=== PATIENT | male | born 1960 | race Hispanic/Latino ===

== ENCOUNTER 2017-04-26 08:21 | Outpatient (CLI) | payer BC ==
[2017-04-26] MEDS ORDERED: Iopamidol 370 76% 100 ML VIAL ONE (09:00)
[2017-04-26 09:15] LABS: Anion Gap 15 mmol/L (10-20); BUN (Urea Nitrogen) 20 mg/dL (8.4-25.7); Calc. Creatinine Clearance 0 mL/min (70-130); Calcium 9.6 mg/dL (7.8-10.44); Carbon Dioxide 27 mmol/L (22-29); Chloride 104 mmol/L (98-107); Estimated GFR-MDRD Greater than 90
--- NOTE | 2017-04-26 10:03 | CT ---
CT ABDOMEN AND PELVIS WITH AND WITHOUT CONTRAST: HISTORY: Microscopic hematuria. FINDINGS: The lung bases are clear. No pericardial effusion. On the pre-contrast sequence, no nephroureterolithiasis. There is left-sided hydroureteronephrosis, perinephric stranding, delayed enhancement, and delayed co ntrast excretion. There is a papillary mass within the posterior wall of the urinary bladder with en hancement. This mass extends through the posterior wall of the urinary bladder and appears to have s ome lymphovascular invasion. The mass involves the prostate. There are small bilateral pelvic sidew all lymph nodes. Although the sigmoid colon abuts the mass, it does not appear to be directly involv ed. The mass does narrow the left ureterovesical junction, causing the left hydroureteronephrosis. There are vea-tiwej-ua-characterize hypodensities of the kidneys. On what is supposed to be the 90-s econd delay, there is already contrast in the renal collecting system, decreasing the sensitivity for enhancing renal masses. The spleen and pancreas are unremarkable, as well as the liver and gallbladder. There are bilateral L5 pars interarticularis defects with grade 1 anterolisthesis. IMPRESSION: 1. Very large papillary mass of the posterior wall of the urinary bladder, measuring 13.5 cm transve rse x 6.5 cm AP x 10 cm craniocaudad dimension. There is extension through the posterior wall of the urinary bladder with lymphovascular invasion, as well as involvement of the prostate. There is also some additional satellite nodularity of the anterior wall of the urinary bladder, which extends outs ashlee the serosa. 2. Small pelvic sidewall lymph nodes. 3. Left-sided hydroureteronephrosis due to obstruction of the left ureterovesical junction. There i s mild left-sided perinephric and periureteral stranding. CODE T. Multiple attempts to contact ordering provider were made via telephone. POS: [facility]
[2017-04-26 10:28] LABS: Bilirubin Negative (Negative); Blood, Urine Moderate (Negative); Glucose, Urine (Dipstick) Negative (Negative); Ketone, Urine Negative (Negative); Nitrite Negative (Negative); Protein, Urine (Dipstick) 100 mg/dL (Neg-Trace); Urobilinogen 0.2 mg/dL (0.2-1.0)
[2017-04-26 10:43] LABS: Bacteria/HPF 2+ HPF (None Seen); Oval Fat Bodies/HPF 1+ HPF (None Seen); Squamous Epithelial 0-3 HPF (0-3)
== END 2017-04-26 08:22 | disposition home or self-care (01) ==
LOC: SCSCT 08:21
PROVIDERS: ATTEND Urology
DX: R31.29 Other microscopic hematuria (principal); N32.89 Other specified disorders of bladder; N13.2 Hydronephrosis with renal and ureteral calculous obstruction
CPT/HCPCS: 36415; 74178; 80048; 81001; 84153; 87086; 88112

== ENCOUNTER 2017-05-17 09:06 | Outpatient (CLI) | payer BC ==
--- NOTE | 2017-05-17 09:54 | RAD ---
CHEST 2 VIEWS: HISTORY: Malignant neoplasm of overlapping site of bladder. COMPARISON: None. FINDINGS: There is a nodule in the right lung base. Lungs are otherwise clear. No pneumothorax or effusion. Cardiac silhouette and mediastinal contours are within normal limits. Mild tortuosity of the aorta. IMPRESSION: Nodule right lung base of uncertain importance. A followup CT chest would be beneficial. CODE: Lung nodule POS: [facility]
--- NOTE | 2017-05-17 14:28 | NM ---
RADIONUCLIDE BONE SCAN: HISTORY: Urinary bladder carcinoma. FINDINGS: Heterogeneous uptake involves the shoulders and the sternoclavicular joints with the appearance of de generative changes. Uptake involving each side of the mandible may related to dentures. Urinary bladder is distended with uptake, partially obscuring the pelvis. The patient was unable to empty his bladder for better detail. Minimal uptake involving the posterior aspects of the lower ribs is not characteristic for aggressive disease. IMPRESSION: No scintigraphic evidence of skeletal metastases. POS: [facility]
== END 2017-05-17 09:07 | disposition home or self-care (01) ==
LOC: NM 09:06
PROVIDERS: ATTEND Urology
DX: C67.8 Malignant neoplasm of overlapping sites of bladder (principal); R91.1 Solitary pulmonary nodule
CPT/HCPCS: 71046; 78306; A9503

== ENCOUNTER 2017-05-21 13:28 | Outpatient (CLI) | payer BC ==
[2017-05-21 14:29] LABS: Hemoglobin 14.2 g/dL (14.0-18.0); Mean Corpuscular HGB CONC 33.3 g/dL (32.0-36.0); Mean Corpuscular Hemoglobin 30.8 pg (27.0-31.0); Mean Corpuscular Volume 92.5 fl (80.0-94.0); Platelet Count 184 thou/uL (130-400); RBC Distribution Width 11.6 % (11.5-14.5); Red Blood Cell (RBC) Count 4.61 mill/uL (4.70-6.10); White Blood Cell (WBC) Count 8.4 thou/uL (4.8-10.8)
[2017-05-21 14:32] LABS: Bilirubin Negative (Negative); Blood, Urine Large (Negative); Clarity CLOUDY (Clear); Glucose, Urine (Dipstick) Negative (Negative); Leukocyte Moderate (Negative); Nitrite Negative (Negative); Protein, Urine (Dipstick) 30 mg/dL (Neg-Trace); Specific Gravity, Urine 1.015 (1.002-1.036); Urobilinogen 0.2 mg/dL (0.2-1.0); pH, Urine 6.5 (5.0-9.0)
[2017-05-21 14:37] LABS: INR-International Normal Ratio 0.9; Prothrombin Time 12.6 SEC (12.0-14.7)
[2017-05-21 14:38] LABS: PTT 26.2 SEC (22.9-36.1)
[2017-05-21 14:39] LABS: Bacteria/HPF 1+ HPF (None Seen); Hyaline Casts/LPF 0-3 HYALINE CAST LPF (0-3 Hyaline); Squamous Epithelial None Seen HPF (0-3)
[2017-05-21 14:41] LABS: Yeast-AUWi Flag 55.4 (0-25.0)
[2017-05-21 14:51] LABS: RBC/HPF 21-50 HPF (0-3); Yeast-All Forms None Seen HPF (None Seen)
[2017-05-21 14:52] LABS: Anion Gap 17 mmol/L (10-20); BUN (Urea Nitrogen) 22 mg/dL (8.4-25.7); Calc. Creatinine Clearance 0 mL/min (70-130); Calcium 9.7 mg/dL (7.8-10.44); Carbon Dioxide 22 mmol/L (22-29); Chloride 104 mmol/L (98-107); Estimated GFR-MDRD Greater than 90; Glucose 100 mg/dL (70-105); Potassium 4.5 mmol/L (3.5-5.1); Sodium 138 mmol/L (136-145)
== END 2017-05-21 13:29 | disposition home or self-care (01) ==
LOC: LABBT 13:28
PROVIDERS: ATTEND Urology
DX: Z01.818 Encounter for other preprocedural examination (principal); C67.9 Malignant neoplasm of bladder, unspecified
CPT/HCPCS: 80048; 81001; 85027; 85610; 85730; 86850; 86900; 86901; 87077; 87086; 87186; 93005; 93010

== ENCOUNTER 2017-05-24 06:48 | Inpatient (IN) | payer BC ==
[2017-05-21 14:03] VITALS: BMI 34.0
[2017-05-24] MEDS ORDERED: Levofloxacin 500 mg/D5W 100 ml Premix Bag ONE (08:41)
[2017-05-24] MEDS ORDERED: Iothalamate Meglumine 60% 50 ML VIAL FS ONE (09:08)
[2017-05-24] MEDS ORDERED: HYDROmorphone 0.5 MG/0.5 ML SYRINGE ONE (09:12)
[2017-05-24] MEDS ORDERED: Fentanyl 100 MCG/2 ML VIAL ONE ×2 (09:12→13:40)
[2017-05-24] MEDS ORDERED: Rocuronium Bromide 50 MG/5 ML VIAL ONE (12:17)
[2017-05-24] MEDS ORDERED: Furosemide 20 MG/2 ML VIAL ONE (12:57)
[2017-05-24] MEDS ORDERED: hydrALAZINE 20 MG/ML VIAL SLOW IVP PRN (13:18)
[2017-05-24] MEDS ORDERED: diphenhydrAMINE 25 MG CAP PO PRN (13:18)
[2017-05-24] MEDS ORDERED: Oxybutynin 5 MG TAB PO PRN (13:18)
[2017-05-24] MEDS ORDERED: HYDROcodone/Acetaminophen 5/325 mg Tablet PO PRN ×2 (13:18)
[2017-05-24] MEDS ORDERED: Ondansetron HCl/PF 4 MG/2 ML Vial IVP PRN ×2 (13:18→13:45)
[2017-05-24] MEDS ORDERED: Morphine 2 MG/ML SYRINGE IVP PRN ×2 (13:18)
[2017-05-24] MEDS ORDERED: Mag-Al 1200 mg/1200 mg/30 ML UDCUP PO PRN (13:18)
[2017-05-24] MEDS ORDERED: Hyoscyamine Sulfate SL 0.125 mg Tablet SL PRN (13:18)
[2017-05-24] MEDS ORDERED: Promethazine HCl 25 MG/ML VIAL IM PRN (13:45)
[2017-05-24] MEDS ORDERED: Promethazine HCl 25 MG/ML VIAL SLOW IVP PRN (13:45)
--- NOTE | 2017-05-24 13:48 | OP ---
DATE OF SURGERY: 05/24/2017 SERVICE: Urology. SURGEON: Freddy Hill M.D. PREOPERATIVE DIAGNOSIS: Bladder cancer. POSTOPERATIVE DIAGNOSIS: Bladder cancer. PROCEDURE PERFORMED: Transurethral resection of bladder tumor greater than 5 cm. INDICATIONS FOR PROCEDURE: Mr. Vargas is a 57-year-old male, who initially came to see me for hematuria. Workup demonstrated a 14 cm tumor within the bladder along with other tumors and likely extra vesicle extension of the cancer abutting the sigmoid colon. He is being brought in today for resection of the tumor and possible placement of a left-sided stent due to left- sided hydronephrosis noted on the CT preoperatively. Risks and benefits of the surgery have been discussed, and he has agreed to proceed forward with the procedure. DESCRIPTION OF PROCEDURE: After identification of his armband and verification of consent, the patient was brought back to the operating room, where he underwent general anesthesia with an endotracheal intubation. He was then placed in dorsal lithotomy position, prepped and draped in usual sterile fashion. After appropriate timeout, lubricated 26-Kiswahili visual obturator resectoscope sheath was placed through the urethra into the bladder. The tumor was immediately apparent. The visual obturator was switched out for the bladder gyrus resectoscope loop. Resection was started out on the tumor closest to the bladder neck, and approximately 4-1/2 hours were spent resecting just the primary tumor that was near the bladder neck. There was still an extremely large tumor on the posterior wall and additional satellite tumors. I realized at this point that it would be nearly impossible to resect all of the tumor in one setting. Also, bleeding started to become a problem, and it became increasingly difficult to obtain visualization. We switched to a 28- Kisw[place]ili sheath to try and improve visibility and continue resecting; however, due to the amount of hematuria and extremely large size of the tumor, I realized it would not be possible to remove the entire tumor. The patient's best option will probably just to go for a cystectomy to have the bulk of the tumor removed, and we will discuss chemotherapy depending on how his hematuria does. As part of the procedure to evaluate the left ureter, indigo carmine was given, and we did notice blue efflux from the left ureter. Attempts to place a stent were unsuccessful as the wire or the ureteral catheter were unable to be passed into the ureter, indicating there may be a stricture, tumor, or other problem in the distal ureter. Given the amount of hematuria, I would not be able to pass the ureteroscope for visualization and find the distal ureter to try and navigate into the distal ureter to bypass whatever obstruction was. Therefore, I am not sure if the patient still has hydronephrosis or not, so we have elected to stop the procedure and awake the patient. We will get a renal ultrasound later today and then plan to see if he needs a percutaneous nephrostomy tube or not later afterwards. As such, about 40 minutes were spent cauterizing the tumor as best possible. Given it is a soft and friable tumor, cautery only had limited success at attempting to stop the bleeding. The patient does have fairly significant hematuria. Despite my best efforts to try and cauterize it, I was not able to stop all the bleeding. I am hopeful that on CBI the patient will stop clotting on his own as he is off his antiplatelet therapy, and the resectoscope was then removed, and a 24-Kiswahili three-way Weaver catheter was placed through the urethra back into the bladder. Continuous bladder irrigation was initiated. The patient was then awakened and taken to PACU for recovery in stable condition. I am attaching a 22 modifier to this case due to the significant size and difficulty in navigating this tumor with excessive bleeding. COMPLICATIONS: None. ESTIMATED BLOOD LOSS: Approximately 150-200 mL RETAINED TUBES AND DRAINS: A 22-Kiswahili three-way Weaver catheter on CBI. SPECIMENS: Large amount of bladder tumor chips. DISPOSITION: The patient will be kept in the hospital inpatient for continuous bladder irrigation. We will monitor his hematuria. If his hematuria clears sufficiently, he may be able to go home with the catheter, and we will also get a renal ultrasound to see if he needs a percutaneous nephrostomy tube if the hydronephrosis is still present. Ultimately, the patient will likely need chemotherapy and a cystectomy as it will not be possible to remove all the tumor , and the patient does have known T4 disease, which will likely necessitate a cystectomy anyways. [facility]
[2017-05-24] MEDS ORDERED: ISOVUE-370 76%-LOCM 1 ML ONE (13:58)
[2017-05-24] MEDS ORDERED: cefOXitin 1.5 GM in Sodium Chloride 0.9% 100 ML IVPB SCH (14:00)
[2017-05-24 14:26] LABS: Anion Gap 15 mmol/L (10-20); BUN (Urea Nitrogen) 20 mg/dL (8.4-25.7); Calc. Creatinine Clearance 158 mL/min (70-130); Calcium 8.5 mg/dL (7.8-10.44); Carbon Dioxide 23 mmol/L (22-29); Chloride 104 mmol/L (98-107); Estimated GFR-MDRD Greater than 90; Glucose 142 mg/dL (70-105); Potassium 4.6 mmol/L (3.5-5.1); Sodium 137 mmol/L (136-145)
[2017-05-24] MEDS: cefOXitin 1.5 GM, Admixture Fee 1 EACH in Sterile Water 8.33 ML SLOW IVP SCH ×2 (16:14→22:03)
[2017-05-24] MEDS ORDERED: Succinylcholine Chloride 20 MG/ML 10 ml SYRINGE FS ONE (16:16)
[2017-05-24] MEDS ORDERED: Lidocaine 1% PF 5 ML VIAL ONE (16:16)
[2017-05-24] MEDS ORDERED: Metoclopramide HCl 10 MG/2 ML VIAL ONE (16:16)
[2017-05-24] MEDS ORDERED: Glycopyrrolate 0.2 MG/ML 5 ML SYRINGE ONE (16:16)
[2017-05-24] MEDS ORDERED: ePHEDrine/0.9% NaCl/PF SYRINGE 50 mg/10 ml ONE (16:16)
[2017-05-24] MEDS ORDERED: PHENYLEPHRINE-NS 100 MCG/ML 10 ML SYRINGE ONE (16:16)
[2017-05-24] MEDS ORDERED: Ondansetron HCl/PF 4 MG/2 ML Vial ONE (16:16)
[2017-05-24] MEDS ORDERED: Dexamethasone 20 MG/5 ML VIAL ONE (16:16)
[2017-05-24] MEDS ORDERED: PROPOFOL 200 MG/20 ML VIAL ONE (16:16)
--- NOTE | 2017-05-24 17:17 | CT ---
CT CHEST WITH IV CONTRAST 05/24/17 HISTORY: Abnormal chest radiograph. Lung nodule. Bladder cancer. FINDINGS: there is minimal atelectasis at the lung bases. No nodule is evident at the right lung base in region of concern on recent chest radiograph. Scattered tiny nonspecific subpleural. Scattered tiny nonspec ific subpleural nodules are noted. No pleural fluid or mediastinal adenopathy. Calcifications present within the arterial structures including the coronary arteries. There are degenerative changes of th e lumbar spine. IMPRESSION: 1. No CT evidence of metastatic disease of the chest. Nodular density overlying the right lung b ase on recent chest radiograph likely represents the nipple shadow. No pulmonary masses are evident. 2. Atherosclerosis. POS: [facility]
--- NOTE | 2017-05-24 17:42 | ULT ---
ULTRASOUND RENAL BILATERAL 05/24/17 HISTORY: Left hydronephrosis, blood in urine. COMPARISON: CT abdomen and pelvis 04/06/17. FINDINGS: There is moderate left sided hydronephrosis and proximal hydroureter. There is a Weaver catheter withi n the urinary bladder. The urinary bladder appears to have debris within it. The right kidney measures 13.2 x 6.2 x 5.6 cm and the left kidney measures 12.6 x 6.1 x 6.7 cm. IMPRESSION: 1. Moderate left hydroureteronephrosis. 2. Mass within the urinary bladder. POS: OFF
[2017-05-24] MEDS: Famotidine/PF 20 mg/2ml Vial SLOW IVP SCH (21:28)
[2017-05-24] MEDS: Docusate 100 MG CAP PO SCH (21:29)
[2017-05-25 04:14] LABS: #Eosinphils 0.1 thou/uL (0.0-0.7); #Lymphocytes 1.6 thou/uL (1.20-3.40); #Monocytes 0.6 thou/uL (0.11-0.59); #Neutrophils 8.4 thou/uL (1.40-6.50); %Basophils 0.2 % (0.0-1.0); %Eosinophils 0.6 % (0.0-10.0); %Lymphocytes 14.8 % (21.0-51.0); %Monocytes 5.4 % (0.0-10.0); Hemoglobin 11.9 g/dL (14.0-18.0); Mean Corpuscular Hemoglobin 31.6 pg (27.0-31.0); Mean Corpuscular Volume 93.1 fl (80.0-94.0); Platelet Count 157 thou/uL (130-400); RBC Distribution Width 11.5 % (11.5-14.5); Red Blood Cell (RBC) Count 3.76 mill/uL (4.70-6.10); White Blood Cell (WBC) Count 10.6 thou/uL (4.8-10.8)
[2017-05-25 04:29] LABS: Anion Gap 12 mmol/L (10-20); BUN (Urea Nitrogen) 17 mg/dL (8.4-25.7); Calc. Creatinine Clearance 167 mL/min (70-130); Calcium 8.7 mg/dL (7.8-10.44); Carbon Dioxide 26 mmol/L (22-29); Chloride 102 mmol/L (98-107); Estimated GFR-MDRD Greater than 90; Glucose 139 mg/dL (70-105); Potassium 3.8 mmol/L (3.5-5.1); Sodium 136 mmol/L (136-145)
[2017-05-25] MEDS: cefOXitin 1.5 GM, Admixture Fee 1 EACH in Sterile Water 8.33 ML SLOW IVP SCH ×3 (05:47→21:42)
[2017-05-25] MEDS: Docusate 100 MG CAP PO SCH ×2 (08:09→21:39)
[2017-05-25] MEDS: Fish Oil 1,000 MG CAP PO SCH (08:09)
[2017-05-25] MEDS: Lisinopril 2.5 MG TAB PO SCH (08:09)
[2017-05-25] MEDS: Metoprolol Tartrate 25 MG TAB PO SCH (08:10)
[2017-05-25] MEDS: Famotidine/PF 20 mg/2ml Vial SLOW IVP SCH ×2 (08:10→21:39)
[2017-05-25] MEDS: Tamsulosin HCl 0.4 MG CAP PO SCH (08:10)
[2017-05-25] MEDS: Furosemide 20 MG TAB PO SCH (08:10)
[2017-05-25] MEDS ORDERED: Fentanyl 100 MCG/2 ML VIAL ONE ×2 (13:14→14:55)
[2017-05-25] MEDS ORDERED: Midazolam HCl 2 mg/2 ml Vial ONE (13:14)
[2017-05-25] MEDS ORDERED: Sodium Chloride 0.9% 40 ML ONE (14:34)
--- NOTE | 2017-05-25 15:30 | PRG ---
DATE OF SERVICE: 05/25/2017 SUBJECTIVE: The patient is having some bladder pain, but is really otherwise doing well. He only hernandez s discomfort in his bladder when his catheter is manipulated, but otherwise states he is feeling fine . His pain seems to be well controlled. He has been up out of bed and tolerating a regular diet. OBJECTIVE: VITAL SIGNS: Temperature 98.2, pulse 60, respirations 16, blood pressure 122/68, saturation 95% on r oom air. GENERAL: No apparent distress, communicative and alert. CARDIOVASCULAR: Regular rate and rhythm. CHEST: No increased work of breathing. ABDOMEN: Soft, nontender, nondistended, positive bowel sounds. GENITOURINARY: Weaver catheter in place with CBI currently off. His urine appears very clear with on ly mild blood tingeing. The urine bag has a reddish color, but is free of clots. EXTREMITIES: No clubbing, cyanosis or edema. LABORATORY DATA: The full set of labs are in the [employer] system, which I have reviewed. Of note, t he patient's hemoglobin is 11.9 with a white count of 10.6, creatinine is currently 0.71. Renal ultr asound demonstrates persistent left hydronephrosis with a large mass within the bladder. IMAGING: A CT of the chest demonstrates no pulmonary findings and no evidence of metastatic disease. The previously noted spot on the chest x-ray was likely a nipple shadow. ASSESSMENT AND PLAN: A 57-year-old male with T4 urothelial carcinoma, status post incomplet e transurethral resection of bladder tumor with resection of a bulk of the tumor, but with a large am ount of tumor still remaining within the bladder. His left ureter remains obstructed by ultrasound a nd therefore, as we had discussed previously, I have recommended that we proceed forward with a percu taneous nephrostomy tube. I will make him n.p.o. and set him up for a nephrostomy tube today and I h ave discussed this with the radiologist already. The patient is agreeable to go for nephrostomy tube . His urine still has some blood in it. I would not recommend that his bladder have to contract rig ht now, we will increase the risk for bleeding again, I have recommended we leave the Weaver catheter in for the time being, which the patient is agreeable to. I will not be here over the weekend and Dr Jacqueline Cedeño, my partner, will be covering for me. I have gone over the plan with her. If his urin e is clear, his nephrostomy tube is draining well and he is otherwise asymptomatic, the patient can p robably be discharged home over the weekend with plans to follow up with me on Sunday for which he corby tom has a scheduled followup appointment. I will send his medications that he will need at home n ow so that when he is discharged from the hospital, the medications will be ready for him.
--- NOTE | 2017-05-25 16:19 | SPC ---
ULTRASOUND AND FLUOROSCOPIC GUIDED LEFT SIDED NEPHROSTOMY CATHETER PLACEMENT 05/25/17 INDICATION: Moderate left hydronephrosis. History of bladder mass. TECHNIQUE: Informed consent was obtained. Preprocedure ultrasound was performed of the left kidney demonstrating moderate left hydronephrosis. Site overlying the posterior inferior aspect of the left kidney was id entified by ultrasound. The site was marked on the skin. The site was prepped and draped in the usual sterile fashion. Buffered 1% lidocaine was administered to the overlying subcutaneous tissues. Under ultrasound guidance, an Accustick micropuncture access kit was utilized to gain access to a posterior inferior major calyx. With removal of the inner stylet , there was spontaneous return of urine. Guide wire was advanced to the level of the renal pelvis. Fo llowing this, the Accustick stiffener and sheath was then guided to the level of the inferior aspect of the left major calyx. The guide wire was advanced to the level of the left renal pelvis. The inner stiffener and sheath were then removed and the inner sheath was advanced to the level of the renal p karin. Positioning within the renal pelvis was then reconfirmed with contrast solution. An 0.035 Ampl carlotta wire was then advanced through the sheath down to the level of the right hemibladder. The inner s angel was removed and an 8 [place] Islander dilator was then advanced through the left posterolateral abdominal wall to the level of the kidney. Following this, an 8 [place] Islander nephrostomy catheter was then guided ov er the wire to the level of the left renal pelvis and coiled in place. Contrast was instilled within the catheter after removal of the wire and inner stiffener. Contrast is seen to fill the left renal p karin and left renal collecting system. The catheter was then sutured to the patient's body wall and a Percu-Stay device was then placed. Patient tolerated the procedure without difficulty. The patient did receive conscious sedation for the examination and received a total of 2 mg of IV versed and 150 mcg of IV Fentanyl. Total fluoroscopic time was 15.4 minutes with a total exposure of 365,494 mGy*cm2 . IMPRESSION: Successful ultrasound and fluoroscopic guided left sided nephrostomy catheter placement. POS: [facility]
--- NOTE | 2017-05-25 18:05 | PRG ---
DATE OF SERVICE: 05/25/2017 SUBJECTIVE: The patient is currently up in chair, CBI has been held, patient returns from the nephrostomy tube, successfully placed draining left percutaneous nephrostomy tube draining pink tinged. Patient denies nausea, vomiting, fever, or abdominal discomfort. OBJECTIVE: VITAL SIGNS: Stable. GENITOURINARY: Demonstrates Weaver catheter in place; however, there is dark recurrent hematuria with clots in the tubing. I flush the catheter, which there was some resistance with CBI tubing reattached. As such, I gently irrigated via hand irrigation and was able to obtain approximately 80 mL of clots, and tumor debris. Subsequently, CBI was reinitiated at a high rate, wide -open with continuing scales red urine. As such, I informed the nurse to continue CBI at a high rate, titrate urine output to pink tinged clear. Patient 's is at bedside and informed regarding the need to restart CBI. IMPRESSION AND PLAN: Mr. 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 He underwent TURBT incomplete, due to large bulky tumor. Significant tumor burden remains, per DR Marcus He is to be transferred to a tertiary care at a later date. As he is unable to tolerate being off CBI will be restarted, monitor H&H. Patient will likely have to be observed over the weekend, as I do not want patient discharged until hematuria is clear off CBI for minimum 24 to 48 hours. [facility]
[2017-05-26 04:48] LABS: Hemoglobin 12.2 g/dL (14.0-18.0)
[2017-05-26] MEDS: cefOXitin 1.5 GM, Admixture Fee 1 EACH in Sterile Water 8.33 ML SLOW IVP SCH ×3 (06:48→22:10)
[2017-05-26] MEDS: Metoprolol Tartrate 25 MG TAB PO SCH (09:15)
[2017-05-26] MEDS: Docusate 100 MG CAP PO SCH ×2 (09:16→22:09)
[2017-05-26] MEDS: Tamsulosin HCl 0.4 MG CAP PO SCH (09:16)
[2017-05-26] MEDS: Furosemide 20 MG TAB PO SCH (09:16)
[2017-05-26] MEDS: Famotidine/PF 20 mg/2ml Vial SLOW IVP SCH (09:17)
[2017-05-26] MEDS: Fish Oil 1,000 MG CAP PO SCH (09:17)
[2017-05-26] MEDS: Lisinopril 2.5 MG TAB PO SCH (09:17)
--- NOTE | 2017-05-26 11:48 | PRG ---
DATE OF SERVICE: 05/26/2017 INPATIENT PROGRESS NOTE SUBJECTIVE: The patient without complaints, doing well, passing flatus, however , has not had a bowel movement for 4 days. PHYSICAL EXAMINATION: VITAL SIGNS: Stable. ABDOMEN: Soft, nontender, and nondistended. GENITOURINARY: Weaver catheter draining gorge tinged urine with no clots. I did flush the CBI tubing with no subsequent clots. Some sedimentary tumor debris was noted. Per nursing staff, CBI at mid to low rate currently, however , earlier this morning, he had edel hematuria requiring higher CBI rate. Currently draining adequately. LABORATORY DATA: His hemoglobin is stable. 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 Postop day #1, left percutaneous nephrostomy tube due to hydronephrosis from obstructing tumor. He is hemodynamically stable, CBI demonstrating slow to mid rate with gorge tinged urine. We will continue CBI. Pending reassessment, we will re- hold the CBI and monitor for tolerability to be off CBI to be discharged home. The patient is to be out of bed with assist only. Also advised patient regarding Dulcolax suppository, which he declines. We will observe. MTDD
[2017-05-26] MEDS ORDERED: Bisacodyl 10 MG SUPP PR PRN (12:40)
[2017-05-26] MEDS: Famotidine 20 MG TAB PO SCH (22:10)
[2017-05-27 05:33] LABS: Hemoglobin 12.4 g/dL (14.0-18.0)
[2017-05-27] MEDS: CEFOXITIN SLOW IVP SCH ×3 (06:44→22:03)
[2017-05-27] MEDS: cefOXitin 1.5 GM, Admixture Fee 1 EACH in Sterile Water 8.33 ML SLOW IVP SCH (07:05)
[2017-05-27] MEDS: Famotidine 20 MG TAB PO SCH ×2 (08:36→22:03)
[2017-05-27] MEDS: Furosemide 20 MG TAB PO SCH (08:36)
[2017-05-27] MEDS: Lisinopril 2.5 MG TAB PO SCH (08:36)
[2017-05-27] MEDS: Docusate 100 MG CAP PO SCH ×2 (08:36→20:16)
[2017-05-27] MEDS: Fish Oil 1,000 MG CAP PO SCH (08:36)
[2017-05-27] MEDS: Metoprolol Tartrate 25 MG TAB PO SCH (08:37)
[2017-05-27] MEDS: Tamsulosin HCl 0.4 MG CAP PO SCH (08:37)
--- NOTE | 2017-05-27 12:19 | PRG ---
DATE OF SERVICE: 05/27/2017 INPATIENT GENITOURINARY PROGRESS NOTE SUBJECTIVE: has some muscle cramp of his left buttock region ; however, denies acute complaints. With encouragement, he did take Dulcolax with four subsequent bowel movements. Per nursing staff, CBI rated low rate; however, with ambulation, does become scales red. PHYSICAL EXAMINATION: ABDOMEN: Soft, nontender, nondistended. Left nephrostomy tube draining clear yellow urine. GENITOURINARY: Weaver catheter is adequately secured with red tinged urine, transparent, CBI at a low rate. I did flush the tubing with no subsequent clots. LABORATORY DATA: H and H stable at 12.4. IMPRESSION AND PLAN: 1. Mr. 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 2. Left percutaneous nephrostomy tube due to hydronephrosis from locally invasive tumor. H and H remained stable continue his continuous bladder irrigation at a current rate to monitor for clear light pink urine. Dr. Hill to resume care tomorrow morning. [facility]
[2017-05-28 04:19] LABS: Hemoglobin 12.7 g/dL (14.0-18.0)
[2017-05-28] MEDS: CEFOXITIN SLOW IVP SCH ×2 (06:23→14:38)
[2017-05-28] MEDS: Docusate 100 MG CAP PO SCH ×2 (09:56→23:08)
[2017-05-28] MEDS: Metoprolol Tartrate 25 MG TAB PO SCH (09:56)
[2017-05-28] MEDS: Fish Oil 1,000 MG CAP PO SCH (09:56)
[2017-05-28] MEDS: Furosemide 20 MG TAB PO SCH (09:56)
[2017-05-28] MEDS: Lisinopril 2.5 MG TAB PO SCH (09:56)
[2017-05-28] MEDS: Tamsulosin HCl 0.4 MG CAP PO SCH (09:56)
[2017-05-28] MEDS: Famotidine 20 MG TAB PO SCH ×2 (09:58→23:08)
--- NOTE | 2017-05-28 11:04 | SPC ---
ULTRASOUND AND FLUOROSCOPIC GUIDED LEFT SIDED NEPHROSTOMY CATHETER PLACEMENT 05/25/17 INDICATION: Moderate left hydronephrosis. History of bladder mass. TECHNIQUE: Informed consent was obtained. Preprocedure ultrasound was performed of the left kidney demonstrating moderate left hydronephrosis. Site overlying the posterior inferior aspect of the left kidney was id entified by ultrasound. The site was marked on the skin. The site was prepped and draped in the usual sterile fashion. Buffered 1% lidocaine was administered to the overlying subcutaneous tissues. Under ultrasound guidance, an Accustick micropuncture access k it was utilized to gain access to a posterior inferior major calyx. With removal of the inner stylet, there was spontaneous return of urine. Guide wire was advanced to the level of the renal pelvis. Fol lowing this, the Accustick stiffener and sheath was then guided to the level of the inferior aspect o f the left major calyx. The guide wire was advanced to the level of the left renal pelvis. The inner stiffener was then removed and the inner sheath was advanced to the level of the left renal pelvis. P ositioning within the renal pelvis was then confirmed with contrast solution. An 0.035 Amplatz wire w as then advanced through the sheath down to the level of the right hemibladder. The inner sheath was removed and an 8 Urdu dilator was then advanced through the left posterolateral abdominal wall to t he level of the kidney. Following this, an 8 Urdu nephrostomy catheter was then guided over the wir e to the level of the left renal pelvis and coiled in place. Contrast was instilled within the cathet er after removal of the wire and inner stiffener. Contrast is seen to fill the left renal pelvis and left renal collecting system. The catheter was then sutured to the patient's body wall and a Percu-St ay device was then placed. Patient tolerated the procedure without difficulty. The patient did receiv e conscious sedation for the examination and received a total of 2 mg of IV Versed and 150 mcg of IV Fentanyl. Total fluoroscopic time was 15.4 minutes with a total exposure of 365,494 mGy*cm2. IMPRESSION: Successful ultrasound and fluoroscopic guided left sided nephrostomy catheter placement.
[2017-05-28] MEDS ORDERED: B & O PR SCH (22:45)
[2017-05-28 23:34] LABS: Hemoglobin 13.4 g/dL (14.0-18.0)
[2017-05-29 04:38] LABS: Hemoglobin 13.3 g/dL (14.0-18.0)
[2017-05-29] MEDS ORDERED: B & O PR SCH (06:00)
[2017-05-29 08:15] VITALS: BP 124/76; TEMP 97.7
[2017-05-29] MEDS: Docusate 100 MG CAP PO SCH (09:14)
[2017-05-29] MEDS: Famotidine 20 MG TAB PO SCH (09:14)
[2017-05-29] MEDS: Furosemide 20 MG TAB PO SCH (09:15)
[2017-05-29] MEDS: Metoprolol Tartrate 25 MG TAB PO SCH (09:15)
[2017-05-29] MEDS: Tamsulosin HCl 0.4 MG CAP PO SCH (09:15)
[2017-05-29] MEDS: Fish Oil 1,000 MG CAP PO SCH (09:15)
[2017-05-29] MEDS: Lisinopril 2.5 MG TAB PO SCH (09:15)
--- NOTE | 2017-05-29 17:38 | PRG ---
DATE OF SERVICE: 05/28/2017 SUBJECTIVE: The patient states he is doing okay today. He had some bladder spasms, some difficulty with his catheter overnight requiring manual irrigation. His hematuria does seem to recur everytime that he gets up and walks. He was not able to go home over the weekend secondary to his bleeding epi sodes. He is having some bladder spasms, but these seem to be controlled when he takes his medicatio ns. OBJECTIVE: VITAL SIGNS: Temperature 97.5, pulse 69, respirations 16, blood pressure 121/73, saturation 96% on r oom air. GENERAL: No apparent distress, communicative and alert. CARDIOVASCULAR: Regular rate and rhythm. CHEST: No increased work of breathing. ABDOMEN: Soft, nontender, nondistended. GENITOURINARY: Weaver catheter in place, secured with extremely light pink translucent urine with CBI on slow drip. EXTREMITIES: No clubbing, cyanosis or edema. LABORATORY DATA: Hemoglobin is 13.4. ASSESSMENT AND PLAN: A 57-year-old male with T4 urothelial carcinoma, status post transuret hral resection bladder tumor and left percutaneous nephrostomy tube placement for left-sided hydronep hrosis with persistent bleeding despite attempts at conservative measures and cauterization in the op erating room. Given the severity of his hematuria, he may require more urgent cystectomy or repeated attempts at cauterization. [facility] has [facility] nificantly more expertise in urothelial carcinoma and the patient will likely need a cystectomy regar dless and ultimately given the patient's severity of his cancer, I think this would be best handled b y a more experienced surgeon. I will contact Dr. Spence for possibility of transfer tomorrow. In th e meantime, we will continue continuous bladder irrigation to keep his urine as clear as possible and avoid clotting and I have recommended less movement by the patient to avoid further clot retention.
--- NOTE | 2017-05-29 17:49 | PRG ---
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 His catheter had to be changed out to a new catheter which was inser tarik without difficulty and began draining better. His CBI has persisted since then and he is now on bed rest. He is also currently n.p.o. for the possibility of having to go back to the operating room . He has had a few bladder spasms and was otherwise doing fine, is not having any pain at the moment . OBJECTIVE: VITAL SIGNS: Temperature 97.7, pulse 62, respirations 18, blood pressure 124/76, saturation 98% on r oom air. GENERAL: No apparent distress, sleeping at the current time. CARDIOVASCULAR: Regular rate and rhythm. CHEST: No increased work of breathing. ABDOMEN: Soft, nontender, and nondistended. Positive bowel sounds. GENITOURINARY: Weaver catheter in place secured with a light pink urine in the CBI tubing. CBI going at a moderate drip. EXTREMITIES: No clubbing, cyanosis, or edema. LABORATORY DATA: The full set of labs in the [facility] system, which I have reviewed. Of note, the p atient's hemoglobin is currently 13.3. ASSESSMENT AND PLAN: A 57-year-old male with T4 urothelial carcinoma and left hydronephrosi s status post TURBT within complete removal of all the tumor and left percutaneous nephrostomy tube p lacement. He has been accepted to transfer to [facility] to Dr. Spence who will assume care of this patient for the time being. Dr. Spence stated that he will probably go for cauterization in the OR first with cystoscopy and if he is able to stop the bleeding, then the patient will go for ne oadjuvant chemotherapy first. Subsequently, he can undergo a cystectomy. If the bleeding cannot be stopped and is persisting, the patient may ultimately require earlier cystectomy. I have told Dr. Jaramillo that I will be willing to assume care of the patient once his treatment has concluded, but for n ow, Dr. Spence will handle this patient's urothelial carcinoma. I will arrange for transfer as Dr. Reynold howard has already placed the paperwork in order to initiate the transfer and the patient can be trans ported out with continuation of his CBI today.
--- NOTE | 2017-05-30 01:02 | DIS ---
DATE OF ADMISSION: 05/24/2017 DATE OF TRANSFER: 05/29/2017 ADMITTING PHYSICIAN: Dr. Freddy Hill. DISCHARGING PHYSICIAN: Dr. Freddy Hill. ACCEPTING PHYSICIAN FOR TRANSFER: Dr. Jimbo Spence at [facility]. ADMITTING DIAGNOSES: 1. Bladder cancer. 2. Left hydronephrosis. DISCHARGE DIAGNOSES: 1. Bladder cancer. 2. Left hydronephrosis. 3. Hematuria with clot retention. PROCEDURE PERFORMED WHILE INPATIENT: 1. Transurethral resection of bladder tumor. 2. Left percutaneous nephrostomy tube placement. BRIEF HISTORY: Mr. Vargas is a 57-year-old white male who initially had seen [facility] 3 years ago for m icrohematuria, attempted hematuria workup at that time were unsuccessful as the patient did not have insurance and did not wish to pay for his imaging or cystoscopy out of pocket. Unfortunately, he did not follow up in 3 years elapse before he was sent back to [facility] for hematuria evaluation again. At th is point, the patient was ensured and went through his hematuria evaluation which demonstrated a larg e 14-cm bladder mass occupying the majority of his bladder with significant difficulty with urination . TURBT was performed to try and identify the left ureteral orifice which was found to be hydronephr otic on CT scan, so he is being taken to the OR for attempts at evaluation of his left ureter as well as attempts to remove some of the tumor to establish better urination and establish a tissue diagnos is. The full H&P can be found on the scan portion of the [employer] system. HOSPITAL COURSE: After his surgery (please see operative note for details), the patient was admitted to the hospital for CBI. The patient had fairly significant hematuria postoperatively and despite s ignificant amount of time spent trying to cauterize bleeding in the operating room, the hematuria was fairly significant. CBI was left wide open overnight and significantly improved by postoperative da y #1. It was felt that the patient's hematuria may resolve on its own; therefore, he would be kept o ne additional day for placement of a nephrostomy tube as the ureteral orifice was identified during s urgery and found to be clear of tumor; however, there was likely some type of obstruction with a CT n ot demonstrating a stone, it was presumed that there was likely cancer in the distal left ureter. A repeat ultrasound demonstrated persistent hydronephrosis on the left side. Therefore, he underwent a percutaneous nephrostomy tube placement on postop day #1. When he returned, he had significant efrain turia again requiring manual irrigation of his catheter. Throughout the weekend, he had multiple epi sodes of hematuria and occasional clotting requiring manual irrigation despite his CBI with significa nt clearing of his hematuria in between episodes of bleeding. By postoperative day #4, the patient h ad significant clearing of his hematuria, but every time the CBI was stopped or the patient began mov ing, his urine did become extremely red resulting in clots, tumor and mucus clots resulting in non-dr ainage of his catheter. At one point, he became so cloggy required change of his entire catheter out to a new catheter. It was felt at this point that he would likely have recurrent episodes of bleedi ng as despite 4 days of CBI. The patient continued to bleed every time he moved and went into clot r etention. I discussed the case with Dr. Spence given that he has an extremely large amount of tumor which was incompletely resected in the operating room that he may require earlier cystectomy. Dr. Jaramillo feels that it would be best for the patient to receive neoadjuvant chemotherapy first, which I t harshk would also be appropriate. Dr. Spence states he will attempt to control the patient's bleeding first to see if he can undergo chemotherapy subsequently and then ultimately a cystectomy. We have a rranged for a transfer to [facility] that Dr. Spence can attempt this on his own. In the meantime, t he patient will remain on CBI. DISCHARGE CONDITION: Stable. DISPOSITION: Transferred to [facility] in [place] to Dr. Jimbo Spence. DISCHARGE MEDICATIONS: Include resuming his home medications with the exception of his Plavix and as pirin, which are currently being held. He is currently on antispasmodics and antibiotics which he wi ll remain on until he reaches [facility] at which time, medications can be adjusted according to Dr. Spence's preferences. FOLLOWUP: His follow up with me will be depending Dr. Spence's disposition and ultimate discharge fr om that hospital, I would be happy to accept the patient back at any time once he has completed his t reatment for urothelial cancer in regards to his surveillance.
== END 2017-05-29 12:06 | disposition short-term general hospital (02) | DRG 657 ==
LOC: SDC 06:48 → SJJU 13:18
PROVIDERS: ADMIT Urology; ATTEND Urology
PROC: 0TBB8ZX Excision of Bladder, Via Natural or Artificial Opening Endoscopic, Diagnostic (ICD-10-PCS; 2017-05-24)
PROC: 0T143JD Bypass Left Kidney Pelvis to Cutaneous with Synthetic Substitute, Percutaneous Approach (ICD-10-PCS; principal; 2017-05-25)
DX: C67.9 Malignant neoplasm of bladder, unspecified (principal); N13.30 Unspecified hydronephrosis; R31.9 Hematuria, unspecified; N40.1 Benign prostatic hyperplasia with lower urinary tract symptoms; R33.8 Other retention of urine; Z83.3 Family history of diabetes mellitus; Z82.49 Family history of ischemic heart disease and other diseases of the circulatory system; Z80.49 Family history of malignant neoplasm of other genital organs; Z80.3 Family history of malignant neoplasm of breast; Z80.52 Family history of malignant neoplasm of bladder
CPT/HCPCS: 36415; 36416; 50430; 50432; 71260; 76770; 80048; 85014; 85018; 85025; 88307; 99152; 99153; A4216; C1729; C1758; C1769; J0131; J0694; J1100; J1170; J1940; J1956; J2001; J2250; J2405; J2704; J2765; J3010; J3370; Q9961; S0028

== ENCOUNTER 2018-05-15 07:42 | Outpatient (CLI) | payer BC ==
[2018-05-15] MEDS ORDERED: Iopamidol 370 76% 100 ML VIAL ONE (09:00)
[2018-05-15 09:07] LABS: Bilirubin Negative (Negative); Blood, Urine Trace (Negative); Clarity Clear (Clear); Glucose, Urine (Dipstick) Negative (Negative); Leukocyte Negative (Negative); Nitrite Negative (Negative); Protein, Urine (Dipstick) Negative (Neg-Trace); Urobilinogen 0.2 mg/dL (0.2-1.0)
[2018-05-15 09:25] LABS: Bacteria/HPF None Seen HPF (None Seen); Hyaline Casts/LPF NONE SEEN LPF (0-3 Hyaline); RBC/HPF None Seen HPF (0-3); Squamous Epithelial None Seen HPF (0-3); WBC/HPF None Seen HPF (0-3)
--- NOTE | 2018-05-15 12:10 | CT ---
CT OF ABDOMEN AND PELVIS PERFORMED WITH AND WITHOUT CONTRAST ENHANCEMENT: History: Bladder cancer reassessment. Comparison: 04-26-17 FINDINGS: The lung bases are clear. There are moderate coronary artery calcifications seen. The liver, spleen, pancreas, and gallbladder regions all appear unremarkable. Right and left adrenal glands and right and left kidneys are normal in size and appearance. There is no significant periaortic or mesenteric adenopathy. CT OF PELVIS PERFORMED WITH AND WITHOUT CONTRAST ENHANCEMENT: There has been a significant change in the appearance of the bladder as compared to the prior examina tion. Large papillary mass which was seen in the lumen of the bladder not visualized. The bladder wal l is thickened. The prostate is mildly enlarged. There is no significant pelvic lymphadenopathy ident ified. IMPRESSION: Diffuse bladder wall thickening of focal mass is not identified. I do not see any significant pelvic lymphadenopathy and left sided hydronephrosis has resolved since the previous exam. POS: DOLLY
== END 2018-05-15 07:43 | disposition home or self-care (01) ==
LOC: SCSCT 07:42
PROVIDERS: ATTEND Urology
DX: C67.8 Malignant neoplasm of overlapping sites of bladder (principal); N32.89 Other specified disorders of bladder
CPT/HCPCS: 74178; 81001; 88112

== ENCOUNTER 2018-06-14 08:47 | Outpatient (CLI) | payer BC ==
[2018-06-14 11:07] LABS: #Basophils 0.1 thou/uL (0.0-0.2); #Eosinphils 0.2 thou/uL (0.0-0.7); #Lymphocytes 2.2 thou/uL (1.20-3.40); #Monocytes 0.3 thou/uL (0.11-0.59); #Neutrophils 3.4 thou/uL (1.40-6.50); %Eosinophils 2.5 % (0.0-10.0); %Lymphocytes 36.3 % (21.0-51.0); %Monocytes 4.9 % (0.0-10.0); %Neutrophils 55.3 % (42.0-75.0); Hemoglobin 15.3 g/dL (14.0-18.0); Mean Corpuscular HGB CONC 33.5 g/dL (32.0-36.0); Mean Corpuscular Hemoglobin 30.6 pg (27.0-31.0); Mean Corpuscular Volume 91.4 fL (78.0-98.0); Mean Platelet Volume 7.2 fL (7.4-10.4); Platelet Count 173 thou/uL (130-400); RBC Distribution Width 11.5 % (11.5-14.5); Red Blood Cell (RBC) Count 5.01 mill/uL (4.70-6.10); White Blood Cell (WBC) Count 6.1 thou/uL (4.8-10.8)
[2018-06-14 11:13] LABS: INR-International Normal Ratio 0.9; PTT 25.4 SEC (22.9-36.1); Prothrombin Time 12.3 SEC (12.0-14.7)
[2018-06-14 11:24] LABS: Anion Gap 12 mmol/L (10-20); BUN (Urea Nitrogen) 13 mg/dL (8.4-25.7); Calc. Creatinine Clearance 0 mL/min (70-130); Calcium 9.7 mg/dL (7.8-10.44); Carbon Dioxide 26 mmol/L (22-29); Chloride 103 mmol/L (98-107); Estimated GFR-MDRD Greater than 90; Glucose 128 mg/dL (70-105); Potassium 4.1 mmol/L (3.5-5.1); Sodium 137 mmol/L (136-145)
[2018-06-14 11:26] LABS: Bilirubin Negative (Negative); Blood, Urine Trace (Negative); Clarity CLEAR (Clear); Glucose, Urine (Dipstick) Negative (Negative); Leukocyte Negative (Negative); Nitrite Negative (Negative); Protein, Urine (Dipstick) Trace mg/dL (Neg-Trace); Specific Gravity, Urine 1.019 (1.002-1.036); pH, Urine 5.5 (5.0-9.0)
[2018-06-14 11:28] LABS: Bacteria/HPF None Seen HPF (None Seen); Hyaline Casts/LPF 0-3 HYALINE CAST LPF (0-3 Hyaline); Pathc Cast-AUWi Flag 0.14 (0-2.49); RBC/HPF 0-3 HPF (0-3); Squamous Epithelial 0-3 HPF (0-3); WBC/HPF 0-3 HPF (0-3)
== END 2018-06-14 08:48 | disposition home or self-care (01) ==
LOC: LABBT 08:47
PROVIDERS: ATTEND Family Medicine
DX: Z01.818 Encounter for other preprocedural examination (principal); C67.8 Malignant neoplasm of overlapping sites of bladder; N40.1 Benign prostatic hyperplasia with lower urinary tract symptoms
CPT/HCPCS: 80048; 81001; 85025; 85610; 85730; 87086; 93005; 93010

== ENCOUNTER 2018-06-21 05:54 | Day surgery (SDC) | payer BC ==
[2018-06-14 09:07] VITALS: BMI 35.6
[2018-06-21] MEDS ORDERED: Levofloxacin 500 mg/D5W 100 ml Premix Bag ONE (06:18)
[2018-06-21] MEDS ORDERED: mitoMYcin 40 MG in Water For Injection,Sterile 20 ML IVPB SCH (06:30)
[2018-06-21] MEDS ORDERED: Fentanyl 100 MCG/2 ML VIAL ONE (07:12)
[2018-06-21] MEDS ORDERED: B & O ONE (08:18)
[2018-06-21] MEDS ORDERED: SUGAMMADEX SODIUM 200 MG/2 ML VIAL ONE (08:19)
--- NOTE | 2018-06-21 09:26 | OP ---
DATE OF PROCEDURE: 06/21/2018 SERVICE: Urology. PREOPERATIVE DIAGNOSIS: Bladder cancer. POSTOPERATIVE DIAGNOSIS: Bladder cancer. PROCEDURES PERFORMED: Cystoscopy with bladder biopsy and fulguration of bladder lesion. INDICATIONS FOR PROCEDURE: Mr. Vargas is a 58-year-old male who initially presented to me with an extremely large low-grade noninvasive tumor. This required multiple resections, but was ultimately able to be cleared. The patient has been on surveillance with BCG, but had a small recurrence in his right lateral bladder wall. He is now coming in for removal of this recurrence. Risks and benefits of the surgery have been discussed and he has agreed to proceed forward. DESCRIPTION OF PROCEDURE: After identification of armband and verification of consent, the patient was brought back to the operating room where he underwent general anesthesia with endotracheal intubation. He was then placed in dorsal lithotomy position and prepped and draped in usual sterile fashion. After appropriate time-out, a lubricated 26-Moldovan resectoscope sheath with visual obturator was passed through the urethra into the bladder. A full cystoscopy was performed. The prostate was slightly hypertrophic with large lateral lobes. No severe obstruction. The prostatic urethra did not demonstrate any tumors. The bladder shows previous signs of BCG changes in surgery with the previously noted tumor at the right lateral bladder wall, but no other tumors identified. The lesion appeared relatively flat and small with the bladder distended under anesthesia and I felt that it probably be easier just a cold cup biopsy of the lesion rather than trying to resect it. As such, the visual obturator was switched out for the working channel for the resectoscope sheath. A cold cup biopsy forceps was then brought in and cold cup biopsy was performed of the tumor and the entire tumor was cleared. This was approximately 3 biopsy pieces. The bladder loop for the Gyrus resectoscope was then brought in and the coag function used to cauterize the base of the tumor and the surrounding area for a total of about 1 cm. Upon completion, the area was very well hemostatic. There were no other tumors identified and all biopsies were sent for routine pathologic evaluation. The bladder was left full. The cystoscope was removed. A 16-Moldovan Weaver catheter was then placed in the patient's bladder and drained 40 mg of mitomycin-C and 20 mL of water was instilled into the patient's bladder. A catheter plug was placed to keep the mitomycin-C in. B and O suppository was placed in the patient's rectum. He was then awakened, taken to PACU for recovery in stable condition. COMPLICATIONS: None. ESTIMATED BLOOD LOSS: Minimal. RETAINED TUBES AND DRAINS: A 16-Moldovan Weaver catheter which will be removed prior to the patient being discharged home. SPECIMENS: Bladder biopsy. DISPOSITION: The patient will be discharged home after he keeps the mitomycin-C in his bladder for an hour. I will then have him follow up as an outpatient to continue with surveillance. He will probably need to reinitiate BCG induction and then continue on BCG maintenance thereafter. Job ID: [id number]
[2018-06-21] MEDS ORDERED: PROPOFOL 200 MG/20 ML VIAL ONE (15:48)
[2018-06-21] MEDS ORDERED: Glycopyrrolate 0.2 MG/ML 5 ML SYRINGE ONE (15:48)
[2018-06-21] MEDS ORDERED: Rocuronium Bromide 10 MG/ML (10ML VIAL) ONE (15:48)
== END 2018-06-21 11:57 | disposition home or self-care (01) ==
LOC: SDC 05:54
PROVIDERS: ATTEND Urology
PROC: 0TBB8ZX Excision of Bladder, Via Natural or Artificial Opening Endoscopic, Diagnostic (ICD-10-PCS; principal; 2018-06-21)
DX: C67.9 Malignant neoplasm of bladder, unspecified (principal); N30.20 Other chronic cystitis without hematuria; N30.80 Other cystitis without hematuria; I10 Essential (primary) hypertension; I25.10 Atherosclerotic heart disease of native coronary artery without angina pectoris; E78.5 Hyperlipidemia, unspecified; Z79.82 Long term (current) use of aspirin; Z79.84 Long term (current) use of oral hypoglycemic drugs; Z79.899 Other long term (current) drug therapy
CPT/HCPCS: 88305; J1956; J3010; J9280

== ENCOUNTER 2021-01-10 13:50 | Outpatient (CLI) | payer BC ==
[2021-01-10 14:47] LABS: Bilirubin Neg (Negative); Blood, Urine 10 (Negative); Clarity Cloudy (Clear); Glucose, Urine (Dipstick) 100 mg/dL (Negative); Ketone, Urine Negative (Negative); Leukocyte 25 (Negative); Nitrite Negative (Negative); Protein, Urine (Dipstick) 15 mg/dl (Neg-Trace); Specific Gravity, Urine 1.015 (1.002-1.036); Urobilinogen Normal mg/dL (Less than 2); pH, Urine 6.5 (5.0-9.0)
[2021-01-10 14:52] LABS: Hemoglobin 15.4 g/dL (13.5-17.5); Mean Corpuscular HGB CONC 33.6 g/dL (32.0-36.0); Mean Corpuscular Hemoglobin 30.6 pg (27.0-33.0); Mean Corpuscular Volume 90.9 fl (81.2-95.1); Mean Platelet Volume 9.6 fl (7.4-10.4); Platelet Count 184 10x3/uL (150-450); RBC Distribution Width 12.2 % (11.5-14.5); Red Blood Cell (RBC) Count 5.04 10x6/uL (4.32-5.72); White Blood Cell (WBC) Count 7.6 10x3/uL (3.5-10.5)
[2021-01-10 14:57] LABS: INR-International Normal Ratio 0.9; PTT 23.2 sec (22.0-33.0); Prothrombin Time 10.3 sec (9.5-12.1)
[2021-01-10 15:06] LABS: Anion Gap 16 mmol/L (10-20); BUN (Urea Nitrogen) 12 mg/dL (8.4-25.7); Calc. Creatinine Clearance 0 mL/min (70-130); Carbon Dioxide 26 mmol/L (23-31); Chloride 103 mmol/L (98-107); Glucose 115 mg/dL (80-115); Sodium 140 mmol/L (136-145)
[2021-01-10 16:04] LABS: Bacteria/HPF Rare-Few HPF (None Seen); RBC/HPF 0-3 HPF (0-3); Squamous Epithelial 0-3 HPF (0-3); WBC/HPF 0-3 HPF (0-3)
[2021-01-10 16:05] LABS: Mucous/LPF Rare LPF (<2+)
[2021-01-11 15:23] LABS: SARS-CoV-2 PCR by NAA Not Detected (NotDetected)
== END 2021-01-10 13:51 | disposition home or self-care (01) ==
LOC: LABBT 13:50
PROVIDERS: ATTEND Urology
DX: Z01.818 Encounter for other preprocedural examination (principal); C67.8 Malignant neoplasm of overlapping sites of bladder; N40.1 Benign prostatic hyperplasia with lower urinary tract symptoms; N13.8 Other obstructive and reflux uropathy; I25.10 Atherosclerotic heart disease of native coronary artery without angina pectoris; E13.9 Other specified diabetes mellitus without complications; Z20.822 Contact with and (suspected) exposure to COVID-19
CPT/HCPCS: 80048; 81001; 85027; 85610; 85730; 87086; 93005; 93010; U0003; U0005

== ENCOUNTER 2021-01-13 05:52 | Day surgery (SDC) | payer OTHER ==
[2021-01-12 10:25] VITALS: BMI 35.9
[2021-01-13] MEDS ORDERED: Levofloxacin 500 mg/D5W 100 ml Premix Bag ONE (06:34)
[2021-01-13] MEDS ORDERED: Fentanyl 100 MCG/2 ML VIAL ONE (07:24)
[2021-01-13] MEDS ORDERED: Famotidine/PF 20 mg/2ml Vial ONE (07:24)
[2021-01-13] MEDS ORDERED: B & O 30 MG SUPP ONE (07:33)
[2021-01-13] MEDS ORDERED: Ketorolac Tromethamine 30 MG/ML VIAL ONE (07:36)
[2021-01-13] MEDS ORDERED: Rocuronium Bromide 10 MG/ML (10ML VIAL) ONE (07:36)
[2021-01-13] MEDS ORDERED: Ondansetron PF 4 MG/2 ML Vial ONE (07:36)
[2021-01-13] MEDS ORDERED: PHENYLEPHRINE-NS 100 MCG/ML 10 ML SYRINGE ONE (07:36)
[2021-01-13] MEDS ORDERED: Lidocaine 1% PF 5 ML VIAL ONE (07:36)
[2021-01-13] MEDS ORDERED: PROPOFOL 200 MG/20 ML VIAL ONE (07:36)
[2021-01-13] MEDS ORDERED: SUGAMMADEX SODIUM 200 MG/2 ML VIAL ONE (08:00)
== END 2021-01-13 10:20 | disposition home or self-care (01) ==
LOC: SDC 05:52
PROVIDERS: ATTEND Urology
PROC: 0TBB8ZX Excision of Bladder, Via Natural or Artificial Opening Endoscopic, Diagnostic (ICD-10-PCS; principal; 2021-01-13)
PROC: 0T768DZ Dilation of Right Ureter with Intraluminal Device, Via Natural or Artificial Opening Endoscopic (ICD-10-PCS; principal; 2021-01-13)
DX: C67.8 Malignant neoplasm of overlapping sites of bladder (principal); N40.0 Benign prostatic hyperplasia without lower urinary tract symptoms; I25.2 Old myocardial infarction; I10 Essential (primary) hypertension; I25.10 Atherosclerotic heart disease of native coronary artery without angina pectoris; K59.00 Constipation, unspecified; Z79.82 Long term (current) use of aspirin; Z79.84 Long term (current) use of oral hypoglycemic drugs; Z79.899 Other long term (current) drug therapy; Z95.5 Presence of coronary angioplasty implant and graft
CPT/HCPCS: 76000; 88307; C2617; J1956; J3010; S0028